=== PATIENT | female | born 1960 | race Caucasian/White ===

== ENCOUNTER 2019-12-04 06:04 | Observation (INO) | payer BC ==
--- NOTE | 2019-12-04 07:54 | EDM.PDOC ---
ED HPI GENERAL MEDICAL PROBLEM - General Chief Complaint: Syncope Stated Complaint: [facility] Time Seen by Provider: 12/04/19 07:00 Source of Information: Reports: Patient, EMS History Limitations: Reports: No Limitations - History of Present Illness INITIAL COMMENTS - FREE TEXT/NARRATIVE: 59-year-old female who had knee surgery 2 weeks ago, got up this morning to go to the bathroom, felt lightheaded and nauseous and then fainted. She hit the back of her head fairly hard. She feels very dizzy then went her family tried to get her up she could not get up so the ambulance was called. She still is having difficulty moving her head because of dizziness and nausea, and has a moderate headache. Some photophobia. No asymmetric neurologic weakness of the extremities. There was some bleeding from the back of the head. Onset: Sudden Duration: Hour(s): (Within the last 2 hours) Location: Reports: Head Associated Symptoms: Reports: Diaphoresis (Earlier, resolved), Headaches, Malaise, Nausea/Vomiting, Weakness Posterior Head Pain Score (Numeric/FACES): 8 - Related Data Allergies Allergy/AdvReac Type Severity Reaction Status Date / Time terbinafine Allergy Hives Verified 12/04/19 06:21 Home Meds: Home Meds Lifitegrast [Xiidra] 1 each OP DAILY 12/04/19 [History] Montelukast [Singulair] 10 mg PO DAILY 12/04/19 [History] Salmeterol Xinafoate [Serevent Diskus] 1 puff IN DAILY 12/04/19 [History] Past Medical History HEENT History: Reports: Cataract Respiratory History: Reports: Asthma 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: , 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 Musculoskeletal History: Reports: Back Pain, Chronic, Fracture Other Musculoskeletal History: r leg, l patella Psychiatric History: Reports: Depression Other Psychiatric History: SAD disorder Dermatologic History: Reports: Eczema - Infectious Disease History Infectious Disease History: Reports: Chicken Pox - Past Surgical History HEENT Surgical History: Reports: Cataract Surgery, Eye Surgery, Retinal Musculoskeletal Surgical History: Reports: Arthroscopic Knee, Other (See Below) Other Musculoskeletal Surgeries/Procedures:: knee surgery; back surgery; left arm surgery Social & Family History - Tobacco Use Smoking Status *Q: Never Smoker - Caffeine Use Caffeine Use: Reports: Coffee, Tea Caffeine Use Comment: tea daily, coffee once a week - Recreational Drug Use Recreational Drug Use: No ED ROS GENERAL - Review of Systems Review Of Systems: See Below Constitutional: Reports: Malaise. Denies: Fever, Chills HEENT: Reports: Other (Some photophobia). Denies: Vision Change Respiratory: Denies: Shortness of Breath GI/Abdominal: Reports: Nausea. Denies: Abdominal Pain, Vomiting Musculoskeletal: Reports: Other (Left knee pain from previous surgery, denies neck pain) Skin: Reports: Bruising (Some bruising still around the left knee, there is an abrasion and small puncture and hematoma of the posterior scalp) Neurological: Reports: Dizziness, Headache Psychiatric: Reports: No Symptoms - Physical Exam Exam: See Below Exam Limited By: No Limitations General Appearance: Alert, Mild Distress, Other (Appears very uncomfortable) Eye Exam: Bilateral Eye: EOMI, PERRL, Other (Fairly photophobic) Head Exam: Other (Hematoma on the right occiput with a small puncture wound and dried blood, very tender to palpation) Neck: Non-Tender Respiratory/Chest: No Respiratory Distress, Lungs Clear Neuro Exam (Abbreviated): Alert, Oriented, No Motor/Sensory Deficits Extremities: Other (Recent surgery of the left knee with some healing ecchymosis , no warmth or erythema or significant effusion) Psychiatric: Flat Affect Course - Vital Signs Last Recorded V/S: Last Vital Signs Temp 98.7 F 12/04/19 10:53 Pulse 59 L 12/04/19 10:53 Resp 16 12/04/19 10:53 BP 125/60 12/04/19 10:53 Pulse Ox 98 12/04/19 10:53 - Orders/Labs/Meds Orders: Medication Orders Acetaminophen (Tylenol) 650 mg PO Q4H PRN PRN Reason: Pain (Mild 1-3)/fever Arformoterol Tartrate (Brovana) 15 mcg INH BIDRT LINDA Sodium Chloride (Normal Saline) 1,000 mls @ 125 mls/hr IV ASDIRECTED LINDA Ibuprofen (Motrin) 600 mg PO Q6H PRN PRN Reason: Pain/Fever Lorazepam (Ativan) 0.5 mg IVPUSH Q4H PRN PRN Reason: Nausea/Vomiting Magnesium Hydroxide (Milk Of Magnesia) 30 ml PO Q12H PRN PRN Reason: Constipation Ondansetron HCl (Zofran Odt) 4 mg PO Q6H PRN PRN Reason: Nausea able to take PO Ondansetron HCl (Zofran) 4 mg IV Q6H PRN PRN Reason: Nausea/Vomiting Senna/Docusate Sodium (Senna Plus) 1 tab PO BID PRN PRN Reason: Constipation Labs: Laboratory Tests 12/04/19 12/04/19 Range/Units 09:10 09:10 WBC 11.5 H (4.5-11.0) K/uL RBC 4.26 (3.30-5.50) M/uL Hgb 13.0 (12.0-15.0) g/dL Hct 40.4 (36.0-48.0) % MCV 95 (80-98) fL MCH 31 (27-31) pg MCHC 32 (32-36) % Plt Count 302 (150-400) K/uL Neut % (Auto) 80 H (36-66) % Lymph % (Auto) 13 L (24-44) % Coles % (Auto) 5 (2-6) % Eos % (Auto) 1 L (2-4) % Baso % (Auto) 1 (0-1) % Sodium 138 L (140-148) mmol/L Potassium 3.6 (3.6-5.2) mmol/L Chloride 104 (100-108) mmol/L Carbon Dioxide 29 (21-32) mmol/L Anion Gap 8.6 (5.0-14.0) mmol/L BUN 11 (7-18) mg/dL Creatinine 0.8 (0.6-1.0) mg/dL Est Cr Clr Drug Dosing 65.06 mL/min Estimated GFR (MDRD) > 60 (>60) Glucose 106 (74-106) mg/dL Calcium 9.2 (8.5-10.1) mg/dL Total Bilirubin 0.5 (0.2-1.0) mg/dL AST 16 (15-37) U/L ALT 31 (12-78) U/L Alkaline Phosphatase 51 (46-116) U/L Total Protein 6.9 (6.4-8.2) g/dL Albumin 3.9 (3.4-5.0) g/dL Globulin 3.0 (2.3-3.5) g/dL Albumin/Globulin Ratio 1.3 (1.2-2.2) Meds: Medications Generic Name Dose Route Start Last Admin Trade Name Freq PRN Reason Stop Dose Admin Acetaminophen 650 mg 12/04/19 10:13 Tylenol PO Q4H PRN Pain (Mild 1-3)/fever Arformoterol Tartrate 15 mcg 12/04/19 11:00 Brovana INH BIDRT LINDA Sodium Chloride 1,000 mls @ 125 mls/hr 12/04/19 10:13 Normal Saline IV ASDIRECTED LINDA Ibuprofen 600 mg 12/04/19 10:13 Motrin PO Q6H PRN Pain/Fever Lorazepam 0.5 mg 12/04/19 10:13 Ativan IVPUSH Q4H PRN Nausea/Vomiting Magnesium Hydroxide 30 ml 12/04/19 10:13 Milk Of Magnesia PO Q12H PRN Constipation Ondansetron HCl 4 mg 12/04/19 10:13 Zofran Odt PO Q6H PRN Nausea able to take PO Ondansetron HCl 4 mg 12/04/19 10:13 Zofran IV Q6H PRN Nausea/Vomiting Senna/Docusate Sodium 1 tab 12/04/19 10:13 Senna Plus PO BID PRN Constipation - Re-Assessments/Exams Free Text/Narrative Re-Assessment/Exam: 12/04/19 09:14 CT of the head confirmed a small subdural along the anterior falx. IMPRESSION: 1. Subdural hematoma along the right side of the anterior falx. No other acute intracranial abnormalities identified. Above findings were discussed with neurology in [place] and observation here in [place] was recommended. CBC and CMP were obtained and I discussed the case with Dr. Terrell of the hospitalist service and he will see the patient to consider admission for observation. Departure - Departure Time of Disposition: 10:50 Disposition: Admitted As Inpatient 66 Clinical Impression: Subdural hematoma, acute Hematoma of scalp Qualifiers: Encounter type: initial encounter Qualified Code(s): S00.03XA - Contusion of scalp, initial encounter - Discharge Information Sepsis Event Note - Evaluation Sepsis Screening Result: No Definite Risk - Focused Exam Vital Signs: Vital Signs Temp Pulse Resp BP Pulse Ox 12/04/19 08:28 97.2 F 58 L 14 117/66 100 12/04/19 07:08 96.8 F L 72 16 135/69 97 12/04/19 06:31 96.8 F L 56 L 14 127/65 98 Date Exam was Performed: 12/04/19 Time Exam was Performed: 11:10
--- NOTE | 2019-12-04 08:21 | CRLCT ---
INDICATION: Fall. Head injury. TECHNIQUE: Noncontrast head CT scan. FINDINGS: No abnormal foci of altered attenuation in the brain parenchyma. No midline shift or mass effect. No hydrocephalus. Subdural hematoma along the right side of the anterior falx. 7 mm dural calcification in the left frontal region may represent a small calcified meningioma. No abnormalities of the skull identified. Right occipital scalp swelling. IMPRESSION: 1. Subdural hematoma along the right side of the anterior falx. No other acute intracranial abnormalities identified. Note: Findings discussed with and acknowledged by Dr. Larsen on 04 Dec 2019 at 0820 hours. Dictated by Sen Colin MD @ 12/04/2019 8:20:12 AM Please note that all CT scans at this facility use dose modulation, iterative reconstruction, and/or weight-based dosing when appropriate to reduce radiation dose to as low as reasonably achievable. Dictated by: Sen Colin MD @ 12/04/2019 08:20:18 (Electronically Signed)
--- NOTE | 2019-12-04 09:43 | PCM.HP.2 ---
H&P History of Present Illness - General Date of Service: 12/04/19 Admit Problem/Dx: Admission Diagnosis/Problem Admission Diagnosis/Problem Subdural hematoma due to concussion Source of Information: Patient, Provider History Limitations: Reports: No Limitations - History of Present Illness Initial Comments - Free Text/Narative: CC: I passed out HPI: Kailee presents to the emergency room today after she had an episode of syncope at home. She reports that she got up out of bed and after she got up and started to walk became dizzy and lightheaded and fell down striking the back of her head on the tile floor. Since that time she has had nausea, especially when she tries to sit up. She has a moderate posterior achy and throbbing headache. She has not taken anything to try and make it feel better. Pain is worse when she tries to sit up. She has not had any vomiting. She is not sure if she lost consciousness or not. She had been feeling fairly well prior to the onset of syncope today other than some achiness in her left knee that underwent arthroscopy about a week and a half ago. No recent fevers or chills. Appetite has been normal though she did not eat or drink very well in the past 24 hours because she was traveling to the area. No complaints of sore throat, cough or shortness of breath. No change in bowels other than some mild constipation after pain medications a week ago. No sick contacts that she is aware of. Labs in the emergency room were normal. Head CT showed a very small subdural hematoma. Neurosurgery was consulted and they recommended admission for observation and repeat CT scan in 12 hours. 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 Musculoskeletal History: Reports: Back Pain, Chronic, Fracture Other Musculoskeletal History: r leg, l patella Psychiatric History: Reports: Depression Other Psychiatric History: SAD disorder Dermatologic History: Reports: Eczema - Infectious Disease History Infectious Disease History: Reports: Chicken Pox - Past Surgical History HEENT Surgical History: Reports: Cataract Surgery, Eye Surgery, Retinal Musculoskeletal Surgical History: Reports: Arthroscopic Knee, Other (See Below) Other Musculoskeletal Surgeries/Procedures:: knee surgery; back surgery; left arm surgery Social & Family History - Family History Cardiac: Reports: CAD - Tobacco Use Smoking Status *Q: Never Smoker - Caffeine Use Caffeine Use: Reports: Coffee, Tea Caffeine Use Comment: tea daily, coffee once a week - Recreational Drug Use Recreational Drug Use: No H&P Review of Systems - Review of Systems: Review Of Systems: See Below Free Text/Narrative: A complete 12 point review of systems was obtained. Pertinent positives and negatives are noted in the history of present illness. All other systems were reviewed and were negative except as noted. Exam - Exam Exam: See Below - Vital Signs Vital Signs: Last Vital Signs Temp 36.2 C 12/04/19 08:28 Pulse 58 L 12/04/19 08:28 Resp 14 12/04/19 08:28 BP 117/66 12/04/19 08:28 Pulse Ox 100 12/04/19 08:28 Weight: 54.431 kg - Exam Quality Assessment: No: Supplemental Oxygen General: Alert, Oriented, Cooperative. No: Mild Distress HEENT: Conjunctiva Clear. No: Mucosa Moist & [place] (dry), Scleral Icterus Neck: Supple, Trachea Midline. No: Lymphadenopathy Lungs: Clear to Auscultation, Normal Respiratory Effort Cardiovascular: Regular Rate, Regular Rhythm. No: Systolic Murmur GI/Abdominal Exam: Normal Bowel Sounds, Soft, Non-Tender, No Distention Extremities: No Pedal Edema. No: Increased Warmth Peripheral Pulses: 2+: Dorsalis Pedis (L), Dorsalis Pedis (R) Skin: Warm, Dry, Wound (laceration on posterior scalp with no active bleeding ) , Incision (two incisions on left knee from recent knee arthroscopy with no erythema or bleeding ) Neuro Extensive - Mental Status: Alert, Oriented x3, Nl Response to Commands Neuro Extensive - Motor, Sensory, Reflexes: No: Dysarthria, Abnormal Motor, Tremor Psychiatric: Alert, Normal Affect - Patient Data Lab Results Last 24 hrs: Laboratory Results - last 24 hr 05/23/20 05/23/20 Range/Units 09:10 09:10 WBC 11.5 H (4.5-11.0) K/uL RBC 4.26 (3.30-5.50) M/uL Hgb 13.0 (12.0-15.0) g/dL Hct 40.4 (36.0-48.0) % MCV 95 (80-98) fL MCH 31 (27-31) pg MCHC 32 (32-36) % Plt Count 302 (150-400) K/uL Neut % (Auto) 80 H (36-66) % Lymph % (Auto) 13 L (24-44) % Yell % (Auto) 5 (2-6) % Eos % (Auto) 1 L (2-4) % Baso % (Auto) 1 (0-1) % Sodium 138 L (140-148) mmol/L Potassium 3.6 (3.6-5.2) mmol/L Chloride 104 (100-108) mmol/L Carbon Dioxide 29 (21-32) mmol/L Anion Gap 8.6 (5.0-14.0) mmol/L BUN 11 (7-18) mg/dL Creatinine 0.8 (0.6-1.0) mg/dL Est Cr Clr Drug Dosing 65.06 mL/min Estimated GFR (MDRD) > 60 (>60) Glucose 106 (74-106) mg/dL Calcium 9.2 (8.5-10.1) mg/dL Total Bilirubin 0.5 (0.2-1.0) mg/dL AST 16 (15-37) U/L ALT 31 (12-78) U/L Alkaline Phosphatase 51 (46-116) U/L Total Protein 6.9 (6.4-8.2) g/dL Albumin 3.9 (3.4-5.0) g/dL Globulin 3.0 (2.3-3.5) g/dL Albumin/Globulin Ratio 1.3 (1.2-2.2) Result Diagrams: 12/04/19 09:10 12/04/19 09:10 Imaging Impressions Last 24 hrs: Head CT-images personally reviewed-small subdural hematoma with no mass effect along the right anterior falx. No other lesions. Sepsis Event Note - Evaluation Sepsis Screening Result: No Definite Risk - Focused Exam Vital Signs: Vital Signs Temp Pulse Resp BP Pulse Ox 12/04/19 08:28 36.2 C 58 L 14 117/66 100 12/04/19 07:08 36 C L 72 16 135/69 97 12/04/19 06:31 36.0 C L 56 L 14 127/65 98 Date Exam was Performed: 12/04/19 Time Exam was Performed: 12:39 *Q Meaningful Use (ADM) - VTE *Q VTE Pharmacological Contraindications *Q: Active Hemorrhage - VTE Risk Assess *Q Each Risk Factor Represents 1 Point: Age 41 - 59 years Total Score 1 Point Risk Factors: 1 Each Risk Factor Represents 2 Points: Arthroscopic surgery Total Score 2 Point Risk Factors: 2 Each Risk Factor Represents 3 Points: None Total Score 3 Point Risk Factors: 0 Each Risk Factor Represents 5 Points: None Total Score 5 Point Risk Factors: 0 Venous Thromboembolism Risk Factor Score *Q: 3 - Problem List (1) Subdural hematoma, post-traumatic SNOMED Code(s): 57381104 ICD Code: S06.5X9A - TRAUM SUBDR HEM W LOC OF UNSP DURATION, INIT Status: Acute Current Visit: Yes Qualifiers: Encounter type: initial encounter Loss of consciousness presence/duration: without LOC Qualified Code(s): S06.5X0A - Traumatic subdural hemorrhage without loss of consciousness, initial encounter (2) Brain concussion SNOMED Code(s): 222085504 ICD Code: S06.0X9A - CONCUSSION W LOSS OF CONSCIOUSNESS OF UNSP DURATION, INIT Status: Acute Current Visit: Yes Qualifiers: Encounter type: initial encounter Loss of consciousness presence/duration: without LOC Qualified Code(s): S06.0X0A - Concussion without loss of consciousness, initial encounter (3) Laceration of head SNOMED Code(s): 027374675 ICD Code: S01.91XA - LACERATION W/O FOREIGN BODY OF UNSP PART OF HEAD, INIT Status: Acute Current Visit: Yes Qualifiers: Encounter type: initial encounter Location of open wound of head: other part of head Foreign body presence: without foreign body Qualified Code(s): S01.81XA - Laceration without foreign body of other part of head, initial encounter Problem List Initiated/Reviewed/Updated: Yes Orders Last 24hrs: Active Orders 24 hr Category Date Time Status Patient Status Manage Transfer [TRANSFER] Routine ADT 12/04/19 09:34 Ordered Resuscitation Status Routine Resus Stat 12/04/19 09:34 Ordered Assessment/Plan Comment:: ASSESSMENT AND PLAN - Small subdural hematoma-secondary to fall. Patient undoubtedly sustained a concussion. In general she is doing fairly well. The subdural hematoma was discussed with the on-call neurosurgeon who recommended repeat CT scan imaging. He did not feel that she needed urgent intervention at this point. Minimal symptoms other than a mild headache and some slight nausea. Scalp laceration did not require repair. -Observation admission for management of pain and nausea -Repeat CT scan tonight or sooner if symptoms escalate -Pain control with acetaminophen and ibuprofen Maintenance issues - - DVT prophylaxis -mechanical - GI prophylaxis -not indicated - Nutrition -regular - Herndon catheter -not indicated CODE STATUS -full code Admission justification -patient will be referred observation status for symptomatic management and repeat imaging Disposition -I would anticipate discharge home tomorrow Primary care physician -primary care is in [place] Bogdan Terrell M.D. - Mortality Measure Prognosis:: Good
[2019-12-04] MEDS ORDERED: Magnesium Hydroxide 400 MG/5 ML Susp 30 ML Cup PO PRN (10:13)
[2019-12-04] MEDS ORDERED: Ondansetron 4 MG Tab.DIS PO PRN (10:13)
[2019-12-04] MEDS ORDERED: Ondansetron 4 MG/2 ML SDV IV PRN (10:13)
[2019-12-04] MEDS ORDERED: LORazepam 2 MG/ML SDV IVPUSH PRN (10:13)
[2019-12-04] MEDS ORDERED: Arformoterol 15 MCG/2 ML Neb Soln INH SCH (11:00)
[2019-12-04] MEDS: Sodium Chloride 0.9% 1,000 ML IV SCH (19:02)
--- NOTE | 2019-12-04 23:55 | CRLCT ---
INDICATION: Head injury from fall, subdural hematoma TECHNIQUE: CT Head without i.v. contrast. COMPARISON: 12/04/2019 FINDINGS: CSF space: The ventricles are normal for age. Brain: The right parafalcine subdural hematoma is noted without interval change measuring 1.8 x 0.6 cm. There is a hyperdense extra-axial hemispherical lesion over the left frontal region measuring 6 mm without change and likely represents an incidental meningioma. No mass-effect or midline shift is seen. Calvarium: The visualized paranasal sinuses are well aerated. The mastoid air cells are clear. The visualized orbits are grossly unremarkable. The calvarium is unremarkable in appearance with no fractures identified. Small scalp hematoma is present over the right posterior vertex. IMPRESSION: 1. The right parafalcine subdural hematoma is noted without interval change measuring 1.8 x 0.6 cm. Dictated by Wesly Valentin MD @ 12/04/2019 11:54:50 PM Please note that all CT scans at this facility use dose modulation, iterative reconstruction, and/or weight-based dosing when appropriate to reduce radiation dose to as low as reasonably achievable. Dictated by: Wesly Valentin MD @ 12/04/2019 23:54:59 (Electronically Signed)
[2019-12-05] MEDS: MONTELUKAST 10 MG PO SCH ×2 (00:35→21:38)
[2019-12-05] MEDS: Sodium Chloride 0.9% 1,000 ML IV SCH (04:03)
[2019-12-05] MEDS: SALMETEROL INH SCH (08:46)
[2019-12-05] MEDS: Acetaminophen 325 MG Tab PO PRN ×2 (09:46→15:06)
--- NOTE | 2019-12-05 15:18 | PCM.PN ---
- General Info Date of Service: 12/05/19 Subjective Update: There were no acute events overnight. Repeat head CT showed a stable small subdural hematoma. Her dizziness is a little better today but still has significant dizziness especially when she tries to stand up. She has a moderate generalized headache today which is slightly less intense than yesterday but now more generalized rather than posterior. No complaints of blurry vision or double vision. No issues with confusion. She has been able to walk only short distances so far. Functional Status: Reports: Pain Controlled - Review of Systems Gastrointestinal: Reports: Nausea Neurological: Reports: Dizziness - Patient Data Vitals - Most Recent: Last Vital Signs Temp 36.0 C L 12/05/19 12:20 Pulse 71 12/05/19 12:20 Resp 16 12/05/19 12:20 BP 128/64 12/05/19 12:20 Pulse Ox 97 12/05/19 12:20 Weight - Most Recent: 54.431 kg I&O - Last 24 Hours: Intake & Output 12/05/19 12/05/19 12/05/19 06:59 14:59 22:59 Intake Total 731 900 Output Total 850 1700 Balance -119 -800 Med Orders - Current: Current Medications Acetaminophen (Tylenol) 650 mg PO Q4H PRN PRN Reason: Pain (Mild 1-3)/fever Last Admin: 12/05/19 15:06 Dose: 650 mg Sodium Chloride (Normal Saline) 1,000 mls @ 125 mls/hr IV ASDIRECTED [facility] Last Admin: 12/05/19 04:03 Dose: 125 mls/hr Ibuprofen (Motrin) 600 mg PO Q6H PRN PRN Reason: Pain/Fever Lorazepam (Ativan) 0.5 mg IVPUSH Q4H PRN PRN Reason: Nausea/Vomiting Magnesium Hydroxide (Milk Of Magnesia) 30 ml PO Q12H PRN PRN Reason: Constipation Montelukast Sodium (Singulair) 10 mg PO BEDTIME [facility] Last Admin: 12/05/19 00:35 Dose: 10 mg Ondansetron HCl (Zofran Odt) 4 mg PO Q6H PRN PRN Reason: Nausea able to take PO Ondansetron HCl (Zofran) 4 mg IV Q6H PRN PRN Reason: Nausea/Vomiting Last Admin: 12/05/19 09:46 Dose: 4 mg Salmeterol (Serevent (Diskus) InhPom) 0 each INH DAILY LINDA Last Admin: 12/05/19 08:46 Dose: 1 each Senna/Docusate Sodium (Senna Plus) 1 tab PO BID PRN PRN Reason: Constipation - Exam Quality Assessment: No: Supplemental Oxygen General: Alert, Oriented, Cooperative, No Acute Distress HEENT: Pupils Equal Lungs: Normal Respiratory Effort GI/Abdominal Exam: Soft, No Distention Extremities: No Pedal Edema Neurological: No New Focal Deficit Psy/Mental Status: Alert, Normal Affect Sepsis Event Note - Evaluation Sepsis Screening Result: No Definite Risk - Focused Exam Vital Signs: Vital Signs Temp Pulse Resp BP Pulse Ox 12/05/19 12:20 36.0 C L 71 16 128/64 97 12/05/19 08:35 37.3 C 74 16 129/71 97 Date Exam was Performed: 12/05/19 Time Exam was Performed: 15:15 - Problem List & Annotations (1) Subdural hematoma, post-traumatic SNOMED Code(s): 56386576 Code(s): S06.5X9A - TRAUM SUBDR HEM W LOC OF UNSP DURATION, INIT Status: Acute Current Visit: Yes Qualifiers: Encounter type: initial encounter Loss of consciousness presence/duration: without LOC Qualified Code(s): S06.5X0A - Traumatic subdural hemorrhage without loss of consciousness, initial encounter (2) Brain concussion SNOMED Code(s): 523507820 Code(s): S06.0X9A - CONCUSSION W LOSS OF CONSCIOUSNESS OF UNSP DURATION, INIT Status: Acute Current Visit: Yes Qualifiers: Encounter type: initial encounter Loss of consciousness presence/duration: without LOC Qualified Code(s): S06.0X0A - Concussion without loss of consciousness, initial encounter (3) Laceration of head SNOMED Code(s): 181372973 Code(s): S01.91XA - LACERATION W/O FOREIGN BODY OF UNSP PART OF HEAD, INIT Status: Acute Current Visit: Yes Qualifiers: Encounter type: initial encounter Location of open wound of head: other part of head Foreign body presence: without foreign body Qualified Code(s): S01.81XA - Laceration without foreign body of other part of head, initial encounter - Problem List Review Problem List Initiated/Reviewed/Updated: Yes - My Orders Last 24 Hours: My Active Orders 12/05/19 00:03 Montelukast [Singulair] 10 mg PO BEDTIME 12/05/19 09:00 Patient's Own Medication [Ptom] 0 each INH DAILY - Plan Plan:: ASSESSMENT AND PLAN - Small subdural hematoma-secondary to fall and complicated by concussion. Repeat head CT showed a stable subdural hematoma. Symptoms seem to be slowly improved but she is still having significant difficulty with ambulation. She has been using only infrequent acetaminophen for pain. -Observation admission for management of pain and nausea -Ondansetron as needed for nausea -Pain control with acetaminophen and ibuprofen -Increase activity as tolerated Maintenance issues - - DVT prophylaxis -mechanical - GI prophylaxis -not indicated - Nutrition -regular Admission justification -patient will be referred observation status for symptomatic management and repeat imaging Disposition -I would anticipate discharge home tomorrow Primary care physician -primary care is in [place] Bogdan Terrell M.D.
[2019-12-05] MEDS: Ibuprofen 600 MG Tab PO PRN (18:33)
[2019-12-06] MEDS: Acetaminophen 325 MG Tab PO PRN (06:25)
[2019-12-06] MEDS: Ibuprofen 600 MG Tab PO PRN (09:12)
[2019-12-06] MEDS: SALMETEROL INH SCH (09:59)
--- NOTE | 2019-12-06 11:43 | CRLCT ---
INDICATION: Subdural hematoma. TECHNIQUE: Noncontrast CT images were obtained through the brain. COMPARISON: CT brain 12/04/2019. FINDINGS: Hyperattenuating anterior right parafalcine subdural hematoma measuring up to 7 mm in thickness, not significantly changed. No new acute intracranial hemorrhage. The ventricles are normal in size for patient age. No midline shift. The dexter-white differentiation is maintained. Calcified 6 mm extra-axial lesion at the left frontal convexity, likely representing a meningioma. The globes are symmetric in size. Improved scalp swelling at the posterior right parietal convexity. The calvarium is intact. The visualized paranasal sinuses and mastoid air cells are clear. IMPRESSION: 1. No significant change compared to 12/04/2019. 2. Hyperattenuating anterior right parafalcine subdural hematoma measuring up to 7 mm in thickness. No new acute intracranial hemorrhage. 3. Calcified subcentimeter extra-axial lesion at the anterior left frontal convexity, likely representing a small meningioma. Please note that all CT scans at this facility use dose modulation, iterative reconstruction, and/or weight-based dosing when appropriate to reduce radiation dose to as low as reasonably achievable. Dictated by Norberto Nascimento MD @ Dec 06 2019 11:36AM Signed by Dr. Norberto Nascimento @ Dec 06 2019 11:43AM
--- NOTE | 2019-12-06 12:47 | PCM.DCSUM1 ---
Discharge Summary - Hospital Course Brief History: Ms. Pugh is a 59-year-old woman who was admitted through the emergency department for monitoring of a small subdural hematoma resulting from a fall. - Discharge Data Discharge Date: 12/06/19 Discharge Disposition: Home, Self-Care 01 Condition: Stable - Referral to Home Health Primary Care Physician: PCP None - Discharge Diagnosis/Problem(s) (1) Meningioma Status: Acute Current Visit: Yes (2) Subdural hematoma, post-traumatic SNOMED Code(s): 42077328 ICD Code: S06.5X9A - TRAUM SUBDR HEM W LOC OF UNSP DURATION, INIT Status: Acute Current Visit: Yes Qualifiers: Encounter type: initial encounter Loss of consciousness presence/duration: without LOC Qualified Code(s): S06.5X0A - Traumatic subdural hemorrhage without loss of consciousness, initial encounter (3) Brain concussion SNOMED Code(s): 046936161 ICD Code: S06.0X9A - CONCUSSION W LOSS OF CONSCIOUSNESS OF UNSP DURATION, INIT Status: Acute Current Visit: Yes Qualifiers: Encounter type: initial encounter Loss of consciousness presence/duration: without LOC Qualified Code(s): S06.0X0A - Concussion without loss of consciousness, initial encounter (4) Laceration of head SNOMED Code(s): 400099712 ICD Code: S01.91XA - LACERATION W/O FOREIGN BODY OF UNSP PART OF HEAD, INIT Status: Acute Current Visit: Yes Qualifiers: Encounter type: initial encounter Location of open wound of head: other part of head Foreign body presence: without foreign body Qualified Code(s): S01.81XA - Laceration without foreign body of other part of head, initial encounter - Patient Summary/Data Hospital Course: Ms. Pugh presented to the emergency room after she had an episode of syncope at home. She reports that she got up out of bed and after she got up and started to walk became dizzy and lightheaded and fell down striking the back of her head on the tile floor. She has a moderate posterior achy and throbbing headache. She has not taken anything to try and make it feel better. Pain is worse when she tries to sit up. She has not had any vomiting. She is not sure if she lost consciousness or not. She had been feeling fairly well prior to the onset of syncope today other than some achiness in her left knee that underwent arthroscopy about a week and a half ago. No recent fevers or chills. Appetite has been normal though she did not eat or drink very well in the past 24 hours because she was traveling to the area. No complaints of sore throat, cough or shortness of breath. No sick contacts that she is aware of. Labs in the emergency room were normal. Head CT showed a very small subdural hematoma. Neurosurgery was consulted and they recommended admission for observation and repeat CT scan in 12 hours. She was admitted to the hospital and given IV fluids for hydration. Follow-up CT scan in 12 hours showed that the subdural hematoma was stable in size. She continued to experience headache unsteadiness and vertigo with movement. The symptoms did seem to slowly improve during her hospitalization. On the day of discharge she reported that her headache had become more centralized in the right frontal region. A third CT scan of the head was obtained and again showed no significant change in the subdural hematoma. The third CT scan did mention possible small frontal meningioma. She will be discharged home with a walker because of her unsteadiness. Activity will be as tolerated and she will resume her usual diet. Follow-up appointment will be scheduled with her primary care provider within 1 week. Follow-up neurosurgical consult will be scheduled in [address] scan, for reassessment of her subdural hematoma and follow-up of possible meningioma. She is instructed to return immediately to the emergency department if she notes any neurologic changes, with weakness or sensory changes. - Patient Instructions Diet: Usual Diet as Tolerated Activity: No Strenuous Activities Other/Special Instructions: Please schedule follow-up appointment with primary care provider within 1 week. Please schedule neurosurgical consult with CT scan of the head in 1 week, follow-up of subdural hematoma and possible meningioma. - Discharge Plan *PRESCRIPTION DRUG MONITORING PROGRAM REVIEWED*: Not Applicable *COPY OF PRESCRIPTION DRUG MONITORING REPORT IN PATIENT JUANY: Not Applicable Home Medications: Home Meds Lifitegrast [Xiidra] 1 each OP DAILY 12/04/19 [History] Montelukast [Singulair] 10 mg PO DAILY 12/04/19 [History] Salmeterol Xinafoate [Serevent Diskus] 1 puff IN DAILY 12/04/19 [History] Acetaminophen [Tylenol] 650 mg PO Q4H PRN tablet 12/06/19 [Rx] - Discharge Summary/Plan Comment DC Time >30 min.: No - Patient Data Vitals - Most Recent: Last Vital Signs Temp 98.6 F 12/06/19 10:06 Pulse 66 12/06/19 10:06 Resp 18 12/06/19 10:06 BP 116/69 12/06/19 10:06 Pulse Ox 96 12/06/19 10:06 Weight - Most Recent: 120 lb I&O - Last 24 hours: Intake & Output 12/05/19 12/06/19 12/06/19 22:59 06:59 14:59 Intake Total 60 Output Total 1000 589 581 Balance -0547 -979 -269 Med Orders - Current: Current Medications Acetaminophen (Tylenol) 650 mg PO Q4H PRN PRN Reason: Pain (Mild 1-3)/fever Last Admin: 12/06/19 06:25 Dose: 650 mg Ibuprofen (Motrin) 600 mg PO Q6H PRN PRN Reason: Pain/Fever Last Admin: 12/06/19 09:12 Dose: 600 mg Lorazepam (Ativan) 0.5 mg IVPUSH Q4H PRN PRN Reason: Nausea/Vomiting Magnesium Hydroxide (Milk Of Magnesia) 30 ml PO Q12H PRN PRN Reason: Constipation Last Admin: 12/06/19 11:28 Dose: 30 ml Montelukast Sodium (Singulair) 10 mg PO BEDTIME [facility] Last Admin: 12/05/19 21:38 Dose: 10 mg Ondansetron HCl (Zofran Odt) 4 mg PO Q6H PRN PRN Reason: Nausea able to take PO Ondansetron HCl (Zofran) 4 mg IV Q6H PRN PRN Reason: Nausea/Vomiting Last Admin: 12/05/19 09:46 Dose: 4 mg Salmeterol (Serevent (Diskus) InhPom) 0 each INH DAILY [facility] Last Admin: 12/06/19 09:59 Dose: 1 each Senna/Docusate Sodium (Senna Plus) 1 tab PO BID PRN PRN Reason: Constipation Discontinued Medications Sodium Chloride (Normal Saline) 1,000 mls @ 125 mls/hr IV ASDIRECTED [facility] Last Admin: 12/05/19 04:03 Dose: 125 mls/hr - Exam General: Reports: Alert, Oriented, Cooperative, Moderate Distress Lungs: Reports: Clear to Auscultation, Normal Respiratory Effort Cardiovascular: Reports: Regular Rate, Regular Rhythm, No Murmurs GI/Abdominal Exam: Soft, Non-Tender, No Organomegaly, No Distention Neurological: Reports: No New Focal Deficit *Q Meaningful Use (DIS) - VTE *Q VTE Pharmacological Contraindications *Q: Active Hemorrhage
== END 2019-12-06 14:05 | disposition home or self-care (01) ==
LOC: JP.ED 06:04 → JP.MS 09:34
PROVIDERS: ADMIT Internal Medicine; ATTEND Hospitalist
DX: S06.0X0A Concussion without loss of consciousness, initial encounter (principal); S06.5X0A Traumatic subdural hemorrhage without loss of consciousness, initial encounter; S01.81XA Laceration without foreign body of other part of head, initial encounter; J45.909 Unspecified asthma, uncomplicated; F32.9 Major depressive disorder, single episode, unspecified; Z88.8 Allergy status to other drugs, medicaments and biological substances; Z79.899 Other long term (current) drug therapy; W01.198A Fall on same level from slipping, tripping and stumbling with subsequent striking against other object, initial encounter; Y92.009 Unspecified place in unspecified non-institutional (private) residence as the place of occurrence of the external cause
CPT/HCPCS: 36415; 70450; 80053; 85025; 94640; 96361; 96374; 99285; A9270; G0378; J2405; J7030